=== PATIENT | female | born 1970 | race Caucasian/White ===

== ENCOUNTER 2017-04-14 18:31 | Emergency (ER) | payer OTHER ==
[2017-04-14 18:58] VITALS: BP 129/78
[2017-04-14] MEDS ORDERED: Ondansetron ODT TAB* 4 MG PO ONE (19:06)
[2017-04-14] MEDS ORDERED: Ibuprofen TAB* 400 MG PO ONE (19:47)
--- NOTE | 2017-04-14 20:38 | UC ---
Stalin Chen Stephanie, scribed for Zen Rehman MD on 04/14/17 at 1921 . Abdominal Pain Female HPI - HPI Summary HPI Summary: The pt is a 46 y/o F presenting to with c/o L sided ovarian pain that began at 15:00 today. Symptoms include vomiting. The pt states she has a hx of cysts. She denies fever, current flank pain or lightheadedness. The pt reports a previous incidence on 03/03/17 but was resolved with Motrin. The pain is rated as a 4 in severity currently but at its worst it is rated a 10 in severity. - History of Current Complaint Chief Complaint: UCAbdominalPain Stated Complaint: ABD PAIN Time Seen by Provider: 04/14/17 19:05 Hx Obtained From: Patient Hx Last Menstrual Period: 04/14/17 Onset/Duration: Lasting Hours - 4, Still Present Timing: Constant Severity Currently: Severe Pain Intensity: 10 Pain Scale Used: 0-10 Numeric Location: Discrete At: LLQ Radiates: No Aggravating Factor(s): Nothing Alleviating Factor(s): Nothing Associated Signs and Symptoms: Positive: Vomiting Allergies/Adverse Reactions: Allergies Allergy/AdvReac Type Severity Reaction Status Date / Time MS Sulfa Drugs [Sulfa Drugs] Allergy Intermediate Rash Verified 04/14/17 18:58 PMH/Surg Hx/FS Hx/Imm Hx Previously Healthy: No GI/ History: Other - hx of ovarian cysts Other GI/ History: hx of ovarian cysts - Surgical History Surgical History: Yes Surgery Procedure, Year, and Place: TONSILS/ADENOIDS 1972. CERVICAL CANCER REMOVAL 1992. TOE TUMOR REMOVED 2010 - Family History Known Family History: Positive: Cardiac Disease, Hypertension, Diabetes - Social History Occupation: Employed Full-time Lives: With Family Alcohol Use: Rare Substance Use Type: None Smoking Status (MU): Never Smoked Tobacco Review of Systems Constitutional: Negative Skin: Negative Eyes: Negative ENT: Negative Respiratory: Negative Cardiovascular: Negative Gastrointestinal: Abdominal Pain - LLQ Genitourinary: Negative Motor: Negative Neurovascular: Negative Musculoskeletal: Negative Neurological: Negative Psychological: Negative All Other Systems Reviewed And Are Negative: Yes Physical Exam Triage Information Reviewed: Yes Vital Signs: Initial Vital Signs Temp 98.6 F 04/14/17 18:53 Pulse 89 04/14/17 18:53 Resp 18 04/14/17 18:53 BP 129/78 04/14/17 18:53 Pulse Ox 100 04/14/17 18:53 Vital Signs Reviewed: Yes - Additional Comments General: well-appearing, no pain distress Skin: warm, color reflects adequate perfusion, dry Head: normal Eyes: EOMI, JOSE ENT: normal Neck: supple, nontender Respiratory: CTA, breath sounds present Cardiovascular: RRR Abdomen: Mild tenderness over the LLQ Bowel: present Musculoskeletal: normal, strength/ROM intact Neurological: normal, sensory/motor intact, A&O x3 Psychological: affect/mood appropriate Abd Pain Female Course/Dx - Course Course Of Treatment: Medicatios reviewed. BP noted and advised to follow up with PCP. PAIN IMPROVED IN CLINIC. PATIENT REPORTS THIS IS A REOCCURRING PAIN THAT HAS BEEN INVESTIGATED IN THE PAST AND DIAGNOSED OVARIAN CYST RUPTURE. NO FEVERS/DYSURIA. DOES NOT FEEL LIGHTHEADED. WE DISCUSSED THE NEED FOR ED EVAL IF THE SX PERSIST OR WORSEN. F/U WITH [facility] [employer]PER[facility] HELPER; ED IF WORSE. - Differential Dx/Diagnosis Provider Diagnoses: LEFT LOWER QUADRANT ABDOMINAL PAIN Discharge - Discharge Plan Condition: Stable Disposition: HOME Prescriptions: Ondansetron ODT TAB* [Zofran 4 MG Odt TAB*] 4 mg PO Q6H PRN #10 tab.odt PRN Reason: Nausea Patient Education Materials: Acute Abdominal Pain (ED) Referrals: Liliana Vital NP [Primary Care Provider] - Additional Instructions: FOLLOW UP WITH YOUR DOCTOR. GO TO THE EMERGENCY DEPARTMENT FOR ANY WORSENING OF YOUR CONDITION OR QUESTIONS OR CONCERNS. Your blood pressure was elevated during todays visit; please follow up with your primary care provider within a week for further evaluation. The documentation as recorded by the Stalin chisholm Stephanie accurately reflects the service I personally performed and the decisions made by me, Zen Rehman MD.
== END 2017-04-14 20:29 | disposition home or self-care (01) ==
LOC: UCEAST 18:31
DX: R10.32 Left lower quadrant pain (principal); R11.0 Nausea; Z32.02 Encounter for pregnancy test, result negative; Z88.2 Allergy status to sulfonamides
CPT/HCPCS: 81003; 81025; 99212; A9270-GY; G0463

== ENCOUNTER 2019-04-08 20:20 | Emergency (ER) | payer OTHER ==
[2019-04-08 20:33] VITALS: BP 132/89
--- NOTE | 2019-04-08 20:37 | UC ---
FLU HPI - HPI Summary HPI Summary: Patient is a 48yo female presenting with chest congestion, nasal congestion, and productive cough x3 days. Patient states symptoms started 5 days ago with fever, body aches, and nasal congestion but that the fever and body aches have since resolved. Denies shortness of breath, wheezing, difficulty breathing. Denies nausea and vomiting. Taking Tylenol for symptom relief and also tried Mucinex this morning. Denies history of asthma or COPD. Patient is a nonsmoker - History of Current Complaint Chief Complaint: UCRespiratory Stated Complaint: UPPER RESPIRATORY COMPLAINT Hx Obtained From: Patient Hx Last Menstrual Period: years Pain Intensity: 4 Pain Scale Used: 0-10 Numeric - Allergy/Home Medications Allergies/Adverse Reactions: Allergies Allergy/AdvReac Type Severity Reaction Status Date / Time Sulfa (Sulfonamide Allergy Severe Rash Verified 04/08/19 20:34 Antibiotics) Home Medications: Home Medications guaiFENesin [Mucinex] 1 tab PO DAILY 04/08/19 [History Confirmed 04/08/19] PMH/Surg Hx/FS Hx/Imm Hx - Surgical History Surgical History: Yes Surgery Procedure, Year, and Place: TONSILS/ADENOIDS 1972. CERVICAL CANCER REMOVAL 1992. TOE TUMOR REMOVED 2010 - Family History Known Family History: Positive: Cardiac Disease, Hypertension, Diabetes - Social History Alcohol Use: Rare Substance Use Type: None Smoking Status (MU): Never Smoked Tobacco Review of Systems All Other Systems Reviewed And Are Negative: Yes Constitutional: Positive: Fever - 5 days ago ENT: Positive: Sinus Congestion. Negative: Sore Throat, Ear Ache Respiratory: Positive: Cough - Productive of yellow sputum. Negative: Shortness Of Breath Cardiovascular: Positive: Negative Gastrointestinal: Positive: Negative. Negative: Vomiting, Nausea Musculoskeletal: Positive: Myalgia - 5 days ago Neurological: Positive: Negative Physical Exam - Summary Physical Exam Summary: Vital Signs Reviewed: Yes A+Ox3, no distress Eyes: Conjunctiva Clear ENT: Hearing grossly normal TM x 2 clear, moist, uvula midline, no exudate, no erythema Neck: Positive: Supple Respiratory: Positive: No respiratory distress, No accessory muscle use + CTA throughout no w/r Cardiovascular: RRR nl s1, s2 no m/r Musculoskeletal Exam: MOSS x 4 without difficulty Neurological: Positive: Alert Psychological: Positive: age appropriate behavior Skin: Positive: no rash, no ecchymosis Vital Signs: Initial Vital Signs Temp 97.3 F 04/08/19 20:29 Pulse 96 04/08/19 20:29 Resp 16 04/08/19 20:29 BP 132/89 04/08/19 20:29 Pulse Ox 97 04/08/19 20:29 Lab Results 04/08/19 Range/Units 20:44 Influenza A (Rapid) Negative (Negative) Influenza B (Rapid) Negative (Negative) Flu Course/Dx - Course Course Of Treatment: Negative rapid flu. Patient vital signs normal and lung sounds clear bilaterally. Patient in no pain or respiratory distress. Discussed likely viral etiology of acute bronchitis. Injected continuous symptomatic treatment including [id number] cough and cold medications. Educated on signs and symptoms of worsening respiratory illness and instructed to go to ED if any red flags occur. Patient voiced understanding and agreed with the treatment plan. - Differential Dx/Diagnosis Provider Diagnosis: Acute bronchitis, Viral URI Discharge ED - Sign-Out/Discharge Documenting (check all that apply): Patient Departure All imaging exams completed and their final reports reviewed: No Studies - Discharge Plan Condition: Stable Disposition: HOME Patient Education Materials: Upper Respiratory Infection (ED), Acute Bronchitis (ED) Referrals: Liliana Vital NP [Primary Care Provider] - If Needed Additional Instructions: Your flu test was negative today. You may continue to take over the counter cough and cold medications for your cold symptoms. You may also continue mucinex and add Flonase for symptom relief. A humidifier at night may also help alleviate symptoms. Get plenty of rest and increase your fluid intake. Follow up with your primary care doctor if your symptoms worsen or do not begin to resolve within 7 days. - Billing Disposition and Condition Condition: STABLE Disposition: Home
[2019-04-08 20:55] LABS: Influenza A Molecular Negative (Negative); Influenza B Molecular Negative (Negative)
== END 2019-04-08 21:24 | disposition home or self-care (01) ==
LOC: UCEAST 20:20
DX: J20.9 Acute bronchitis, unspecified (principal); J06.9 Acute upper respiratory infection, unspecified; Z88.2 Allergy status to sulfonamides
CPT/HCPCS: 99211; G0463

== ENCOUNTER 2019-05-13 10:26 | Emergency (ER) | payer OTHER ==
[2019-05-13 10:57] VITALS: BP 129/77
[2019-05-13 11:37] LABS: Influenza A Molecular Negative (Negative); Influenza B Molecular Negative (Negative)
--- NOTE | 2019-05-13 11:42 | UC ---
Respiratory Complaint HPI - HPI Summary HPI Summary: 48-year-old female who states that she has had bronchitis for approximately one month. She was seen in early March and diagnosed with that. She states that never completely resolved and she feels like she got hit by flulike symptoms last week. She denies any fever at this point. She feels again like she has an exacerbation of bronchitis. She is a nonsmoker. She has a nonproductive cough however states that she had some chest burning and tightness when she is coughing. - History of Current Complaint Chief Complaint: UCGeneralIllness Stated Complaint: COUGH Time Seen by Provider: 05/13/19 11:08 Hx Obtained From: Patient Hx Last Menstrual Period: years ?: No Onset/Duration: Gradual Onset, Lasting Weeks Severity Initially: Moderate Severity Currently: Mild Pain Intensity: 0 Character: Cough: Nonproductive Aggravating Factors: Deep Breaths Alleviating Factors: Nothing Associated Signs And Symptoms: Positive: Wheezing - She notices wheezing mostly at night., URI, Nasal Congestion - Allergies/Home Medications Allergies/Adverse Reactions: Allergies Allergy/AdvReac Type Severity Reaction Status Date / Time Sulfa (Sulfonamide Allergy Severe Rash Verified 05/13/19 10:57 Antibiotics) Home Medications: Home Medications Benzonatate CAP* [Tessalon 100 MG CAP*] 100 mg PO TID PRN #30 cap 05/13/19 [Rx] predniSONE 10 mg TAB [Deltasone 10 MG TAB*] 10 mg PO DAILY 12 Days #30 tab 05/12 [Rx] PMH/Surg Hx/FS Hx/Imm Hx Previously Healthy: Yes Cancer History: Cervical Cancer - Surgical History Surgical History: Yes Surgery Procedure, Year, and Place: TONSILS/ADENOIDS 1972. CERVICAL CANCER REMOVAL 1992. TOE TUMOR REMOVED 2010 - Family History Known Family History: Positive: Cardiac Disease, Hypertension, Diabetes - Social History Lives: With Family Alcohol Use: Rare Substance Use Type: None Smoking Status (MU): Never Smoked Tobacco Review of Systems All Other Systems Reviewed And Are Negative: Yes Constitutional: Positive: Fever, Chills - Fever and chills last week. ENT: Positive: Nasal Discharge Respiratory: Positive: Cough - Nonproductive cough, wheezing at night. Neurological/Mental Status: Positive: Headache - Patient states she had a "massive headache" last week which caused vomiting however that has resolved. Is Patient Immunocompromised?: No Physical Exam Triage Information Reviewed: Yes Appearance: Well-Appearing, No Pain Distress, Well-Nourished Vital Signs: Initial Vital Signs Temp 98.4 F 05/13/19 10:51 Pulse 76 05/13/19 10:51 Resp 20 05/13/19 10:51 BP 129/77 05/13/19 10:51 Pulse Ox 99 05/13/19 10:51 Vital Signs Reviewed: Yes Eyes: Positive: Conjunctiva Clear ENT: Positive: Pharynx normal, Nasal drainage - Clear nasal coryza, TMs normal, Uvula midline. Negative: Sinus tenderness Neck: Positive: Supple, No Lymphadenopathy Respiratory: Positive: Lungs clear, Normal breath sounds, No respiratory distress, No accessory muscle use Cardiovascular: Positive: RRR, No Murmur, Pulses Normal, Brisk Capillary Refill Musculoskeletal Exam: Normal Neurological Exam: Normal Psychological Exam: Normal Skin Exam: Normal Respiratory Course/Dx - Course Course Of Treatment: Rapid flu test: Negative DuoNeb treatment: Patient felt better following the DuoNeb treatment. She felt like she could take a deeper breath. Chest x-ray:Indication: Bronchitis. 2 views of the chest including dual energy PA views demonstrate no mediastinal shift. Heart is of normal size and configuration. Lung dodge are clear. IMPRESSION: No active cardiopulmonary disease is noted. An albuterol inhaler and spacer were given to the patient here and the nurse taught the proper use of that. - Differential Dx/Diagnosis Provider Diagnosis: Bronchitis Discharge ED - Sign-Out/Discharge Documenting (check all that apply): Patient Departure All imaging exams completed and their final reports reviewed: Yes - Discharge Plan Condition: Good Disposition: HOME Prescriptions: Benzonatate CAP* [Tessalon 100 MG CAP*] 100 mg PO TID PRN #30 cap PRN Reason: Cough predniSONE 10 mg TAB [Deltasone 10 MG TAB*] 10 mg PO DAILY 12 Days #30 tab Patient Education Materials: Acute Bronchitis (ED) Referrals: Liliana Vital NP [Primary Care Provider] - Additional Instructions: Increase fluids, take the prednisone with food, use albuterol inhaler 2 puffs every 4-6 hours as needed for wheezing or tight cough. Definite follow-up with your primary care provider if no improvement in 3-4 days. - Billing Disposition and Condition Condition: GOOD Disposition: Home
[2019-05-13] MEDS ORDERED: Albuterol/Ipratropium NEB.SOL* Albuterol 2.5 MG/Ipratropium 0.5 MG 3 ML INH ONE (11:43)
[2019-05-13] MEDS ORDERED: Albuterol HFA INHALER* 8 gm MDI INH ONE (12:15)
== END 2019-05-13 12:37 | disposition home or self-care (01) ==
LOC: UCEAST 10:26
DX: J40 Bronchitis, not specified as acute or chronic (principal); R68.83 Chills (without fever); R09.89 Other specified symptoms and signs involving the circulatory and respiratory systems; R51 Headache; Z88.2 Allergy status to sulfonamides; Z85.41 Personal history of malignant neoplasm of cervix uteri
CPT/HCPCS: 71046; 99212; A9270-GY; G0463